=== PATIENT | female | born 1970 | race Caucasian/White ===

== ENCOUNTER → 2019-05-12 16:58 | Outpatient (CLI) | payer MEDICARE ==
[2019-05-12 17:57] LABS: T4 THYROXINE 7.1 ug/dL (4.7-13.3); THYROID STIMULATING HORMONE 2.89 uIU/mL (0.36-3.74)
== END | disposition home or self-care (01) ==
LOC: D.LABREF 16:58
PROVIDERS: ATTEND Internal Medicine Cardiovascular Disease
DX: R00.2 Palpitations (principal)

== ENCOUNTER 2020-01-26 05:31 | Day surgery (SDC) | payer MEDICARE, BC ==
[~2020-01-26] VITALS: Ht 167.6 cm; Wt 108.4 kg
[~2020-01-26 05:31] MED LIST: DILTIAZEM 24HR120 M3 PO; HYDROCHLOROTHIA25 MG PO; NEURONTIN 300300 MG PO; SINGULAIR5 MG PO; ULTRAM50 MG PO
[2020-01-26 06:02] LABS: BASOPHILS 0.8 % (0-2); EOSINOPHILS 2.7 % (0-7); HEMATOCRIT 44.4 % (36.0-48.0); HEMOGLOBIN 14.7 g/dL (12-16); IMMATURE GRANULOCYTES 0.2 % (0-5); LYMPHOCYTES 44.1 % (15-50); MCHC 33.1 g/dL (31.0-37.0); MCV 87.6 fL (80.0-100.0); MEAN PLATELET VOLUME 8.9 fL (7.4-10.4); MONOCYTES 8.8 % (2-11); NEUTROPHILS 43.4 % (40-80); PLATELET COUNT 248 10x3/uL (130-400); RBC 5.07 10x6/uL (4.00-5.40); RDW 13.2 % (11.5-14.5); WBC 4.8 10x3/uL (4.8-10.8)
[2020-01-26 06:04] LABS: ANION GAP 11.1 mmol/L (8-16); CALCIUM 9.3 mg/dL (8.5-10.1); CARBON DIOXIDE 31.3 mmol/L (21.0-32.0); POTASSIUM - SERUM 3.4 mmol/L (3.5-5.1)
[2020-01-26] MEDS ORDERED: MULTI-DAY VITAM1 TAB PO (07:24)
[2020-01-26 07:27] VITALS: BP 136/93; Ht 167.6 cm; Wt 108.4 kg
--- NOTE | 2020-01-27 16:26 | OP ---
PATIENT NAME: LAWRENCE AYALA MEDICAL RECORD: [id number] :70 LOCATION:D.OPS ADMISSION DATE: SURGEON: LONA ROBIN MD DATE OF OPERATION: 01/26/2020 PREOPERATIVE DIAGNOSIS: Symptomatic recurrent right inguinal hernia. POSTOPERATIVE DIAGNOSIS: Symptomatic recurrent right inguinal hernia, incarcerated femoral hernia. PROCEDURE: Open bilayered mesh repair, recurrent incarcerated right femoral inguinal hernia. SURGEON: Lona Robin MD SECURITIES SUPERVISOR: Evan Wood conveyor technician. BLOOD LOSS: 50 cc. ANESTHESIA: General. COMPLICATIONS: None. The risks, possible complications, and alternatives to the procedure were explained to the patient. She elects to proceed. Discussion specifically included, but was not limited to, bleeding requiring emergency reoperation, infection, intestinal injury as well as bladder injury. OPERATIVE COURSE: The patient was conveyed to the operating room electively on 01/26/2020. General anesthesia was induced by the anesthesia. The abdomen, genitals and the right thigh were sterilely prepped and draped. A transverse incision was accomplished in the pannicular fold. Sharp dissected was carried down through the skin and subcutaneous tissue to the Sid's fascia which was then incised. The external oblique aponeurosis was incised along the direction of its fibers. I bluntly dissected down through the internal oblique and transverse abdominis muscles. A preperitoneal pocket was fashioned. I was unable to reduce a femoral hernia. I then performed some blunt dissection up over Michael's ligament and identified the incarcerated femoral hernia. Some blunt dissection was performed to free it up from the surrounding connective tissues. I tried to reduce the hernia, but the hernia defect was very small and I was unable to reduce it. I went back to my incision and the muscle technique I used and identified the peritoneum. I incised the peritoneum. I was then able to extirpate a good bit of omentum, which appeared to have been the material that was present within the hernia sac. I excised a good bit of omentum with the Super Jaw EnSeal device. I then examined the right inguinal fossa from within the hernia sac. I tried to reperitonealize the peritoneum; however, it was too frayed really to hold the sutures well and to reperitonealize. I checked again the hernia sac and it was partially deflated; however, I was still unable to reduce the hernia sac. I think this was due to swelling of the OPERATIVE REPORT [id number] LAWRENCE AYALA CLARISSA sac more than incarcerated contents. Indeed, when I incised into the hernia sac, there was some clear fluid present, but no further evidence of incarcerated omentum. I excised portions of the hernia sac. The portions of the hernia sac I left behind, I was able to reduce through the hernia defect. Going back again cephalad in the preperitoneal pocket, I cut a Ventralight ST mesh and placed in the preperitoneal space with the slick side toward the small bowel and the rough side toward the overlying muscle. The internal oblique and transversus abdominis muscles were closed with multiple interrupted horizontal mattress 0 Surgidacs. The external oblique aponeurosis was closed with running #1 Vicryls. I then went and examined the femoral hernia defect. I took a Prolene plug and stuffed it up in through the hernia defect. I then sutured the hernia defect, closed with overlying this plug with multiple interrupted 0 Surgidac sutures. Sid's fascia was approximated with interrupted 3-0 Vicryls. The subdermis was approximated with interrupted 3-0 Vicryls. The skin was approximated with a running intracuticular 3-0 Vicryl. Benzoin and Steri-Strips were applied. The patient was then extubated and conveyed to post-anesthesia care unit where she was in stable condition. She will be dismissed home on a narcotic analgesic as well as a stool softener. TRANSINT:[id number] Voice Confirmation ID: [id number] DOCUMENT ID: [id number] LONA ROBIN MD at 1626 CC: TABITHA CORNEJO M.D. and HUMPHREY VERA MD [id number] DICTATION DATE: 01/26/20 1643 WEED CUTTER: 01/27/20 0241 [facility] 01/26/20 [facility] [address] [place] [address]
== END 2020-01-26 13:25 | disposition home or self-care (01) ==
LOC: D.OPS 05:31 → D.PAN 08:00 → D.OPS 08:00
PROVIDERS: ATTEND Surgery
DX: K40.91 Unilateral inguinal hernia, without obstruction or gangrene, recurrent (principal)